=== PATIENT | female | born 1995 | race Caucasian/White ===

== ENCOUNTER 2019-05-15 06:00 | Inpatient (IN) | payer OTHER ==
--- NOTE | 2019-05-14 16:16 | P.HPOB ---
History of Present Illness H&P Date: 05/14/19 Chief Complaint: Induction of labor This is a 24 y.o. female, 2, para 0, with an estimated date of confinement of 05/19/2019, estimated gestational age of 39-3/7 weeks, who presents for induction of labor. She admits to good movement and has been experiencing irregular contractions. course has been uncomplicated. labs: Hepatitis B surface antigen-neg RPR-NR Rubella-immune Blood type- B neg. Antibody screen-neg. Hemoglobin-13.6 Random glucose-73 1 hr. GTT-119 Rhogam-given at 28 weeks Group B streptococcus-neg OB Hx: . 1 miscarriage. 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 Social Hx: . Works at a [employer]. Review of Systems Constitutional: Denies chills, Denies fever Eyes: denies blurred vision, denies pain Ears, nose, mouth and throat: Denies headache, Denies sore throat Cardiovascular: Denies chest pain, Denies shortness of breath Gastrointestinal: Reports abdominal pain (irregular contractions) Genitourinary: Reports pelvic pain, Reports Musculoskeletal: Reports low back pain Integumentary: Denies pruritus, Denies rash Neurological: Denies numbness, Denies weakness Psychiatric: Denies anxiety, Denies depression Past Medical History Past Medical History: Asthma History of Any Multi-Drug Resistant Organisms: None Reported Past Surgical History: Orthopedic Surgery Additional Past Surgical History / Comment(s): knee wrist Past Psychological History: No Psychological Hx Reported Smoking Status: Never smoker Past Alcohol Use History: None Reported Past Drug Use History: None Reported - Past Family History Father Family Medical History: Hypertension Medications and Allergies Home Medications Medication Instructions Recorded Confirmed Type Albuterol Inhaler [Ventolin Hfa 03/27/15 05/07/15 History Inhaler] Beclomethasone Dipropionate [Qvar 1 puff INHALATION BID 03/27/15 05/07/15 History 40 mcg/puff] Orphenadrine [Norflex] 100 mg PO Q12H PRN #12 tablet.er 05/07/15 Rx Allergies Allergy/AdvReac Type Severity Reaction Status Date / Time No Known Allergies Allergy Verified 05/07/15 17:27 Exam Osteopathic Statement: *. No significant issues noted on an osteopathic structural exam other than those noted in the History and Physical/Consult.
[2019-05-15] MEDS ORDERED: LIDOCAINE 0.5% (PF) 5 MG/ML (50 ML SDV) SQ PRN (06:36)
[2019-05-15] MEDS ORDERED: LIDOCAINE 1% (10MG/ML) FOR IV START INTRADERMA PRN (06:36)
[2019-05-15] MEDS ORDERED: METHYLERGONOVINE 0.2 MG/ML 1 ML AMP IM PRN (06:36)
[2019-05-15] MEDS ORDERED: OXYTOCIN 10 UNIT/ML 1 ML VIAL IM PRN (06:36)
[2019-05-15] MEDS ORDERED: TERBUTALINE 1 MG/ML VIAL SQ PRN (06:36)
[2019-05-15] MEDS ORDERED: OXYTOCIN 30 UNITS/500 ML NS 30 UNIT in SALINE 1 500ML.BAG IV SCH (06:36)
[2019-05-15] MEDS ORDERED: CARBOPROST TROMETHAMINE 250 MCG/ML 1 ML AMP IM PRN (06:36)
[2019-05-15] MEDS: LACTATED RINGERS 1,000 ML IV SCH ×3 (06:40→23:30)
[2019-05-15 06:47] LABS: Basophils % (A) 0 %; Eosinophils # (A) 0.2 k/uL (0-0.7); Eosinophils % (A) 1 %; HCT 40.7 % (34.0-46.0); HGB 13.8 gm/dL (11.4-16.0); Lymphocytes # (A) 1.6 k/uL (1.0-4.8); Lymphocytes % (A) 9 %; MCH 29.6 pg (25.0-35.0); Mean Platelet Volume 7.5; Monocytes % (A) 6 %; Neutrophils % (A) 83 %; Platelet Count 238 k/uL (150-450); RBC 4.67 m/uL (3.80-5.40); RDW 12.7 % (11.5-15.5)
[2019-05-15] MEDS ORDERED: BUTORPHANOL 1 MG/ML 1 ML VIAL IM PRN (12:15)
[2019-05-15] MEDS ORDERED: BUTORPHANOL 1 MG/ML 1 ML VIAL IV PRN (12:20)
[2019-05-15] MEDS ORDERED: CITRIC ACID-SODIUM CITRATE 15 ML CUP PO ONE (19:17)
[2019-05-15] MEDS ORDERED: LACTATED RINGERS 1,000 ML IV ONE (19:17)
[2019-05-15] MEDS ORDERED: KETOROLAC 30 MG/ML 1 ML VIAL ONE (19:24)
[2019-05-15] MEDS ORDERED: ONDANSETRON 4 MG/2 ML VIAL ONE (19:24)
[2019-05-15] MEDS ORDERED: OXYTOCIN 10 UNIT/ML 1 ML VIAL ONE (19:24)
[2019-05-15] MEDS ORDERED: NALBUPHINE 10 MG/ML (1 ML AMP) ONE (19:24)
[2019-05-15] MEDS ORDERED: MORPHINE SULFATE (PF) 0.3 MG/0.3 ML SYR ONE (19:24)
[2019-05-15] MEDS ORDERED: PHENYLEPHRINE-0.9% NACL SYG 1 MG/10 ML SYRINGE ONE (19:24)
[2019-05-15] MEDS ORDERED: ceFAZolin 1,000 MG VIAL ONE (19:24)
--- NOTE | 2019-05-15 20:21 | P.OP ---
Date of Procedure: 05/15/19 Preoperative Diagnosis: 1. Intrauterine at 39-3/7 weeks. 2. Failure to progress. Postoperative Diagnosis: Same Procedure(s) Performed: Primary low transverse section Anesthesia: spinal (Duramorph) Surgeon: Nishi Yu Check Airman #1: Olga Michel Estimated Blood Loss (ml): 500 Pathology: none sent Condition: stable Disposition: floor Indications for Procedure: This is a 24-year-old female 2 para 0 at 39-3/7 weeks who presented for induction of labor. She progressed to 9-1/2 cm to rim and began pushing with a very stretchy cervix. There was a significant amount of caput and her pushes were fairly ineffective. The patient requested section and did not want to push anymore. I have discussed the risks, benefits, and alternative therapies for the above- mentioned procedure and for both sedation/anesthesia as well as necessary blood products administration, if indicated, as they pertain to this patient. The patient has indicated her understanding and acceptance of the risks and procedures discussed. Operative Findings: A viable female is noted in the vertex presentation in a right occiput transverse lie with a significant amount of caput. scores were 8 at 1 minute and 9 at 5 minutes and infant weight was 8 lbs. 1 oz. Normal uterus tubes and ovaries are noted. Description of Procedure: The patient is taken to the operating room where she is placed in the dorsal supine position with leftward tilt after spinal Duramorph anesthesia is given. She is prepped and draped in the normal sterile fashion. Skin was tested and found to be adequately anesthetized. A Pfannenstiel skin incision was made with a scalpel. A second knife was used to carry the incision down to the underlying layer of fascia. The fascia was nicked in the midline with a scalpel and then extended laterally bilaterally with Espinoza scissors. The anterior lip of the fascia was grasped with 2 Michele clamps and then dissected off the underlying rectus muscle in the midline with Espinoza scissors. The inferior aspect of the fascial incision was grasped with 2 Michele clamps and dissected off the underlying rectus muscle and the midline with Espinoza scissors. Next the peritoneum layer was tented up with 2 hemostats and then entered sharply with the scalpel. The incision is extended superiorly and inferiorly with Metzenbaum scissors. Next a DeLee retractor is placed. The vesicouterine peritoneum is entered sharply with Metzenbaum scissors and extended laterally bilaterally with Metzenbaum scissors and then the bladder flap is pushed inferiorly. The lower uterine segment is incised in transverse fashion with the scalpel and then bluntly entered with a hemostat. Clear fluid is noted. The incision was then extended laterally bilaterally with 2 fingers. Next the infant's head is delivered through the incision. Nose and mouth are bulb suctioned. The remainder of the infant is easily delivered and placed on mother's abdomen. Cord is clamped and cut. Infant is taken to warmer by nursing staff. Uterine fundus is gently massaged and placenta is delivered manually. Uterus is exteriorized and cleared of all clots and debris. Uterine incision is closed with 0 Vicryl suture in a running locked fashion. A second layer of 0 Vicryl suture is used in a running fashion for hemostasis. Once adequate hemostasis as assured, the vesicouterine peritoneum is reapproximated with 2-0 Vicryl suture in a running fashion. Posterior cul-de-sac is suctioned of all clots and debris. Uterus is returned to the abdomen. Incision is noted to be hemostatic. Peritoneal layer is closed with 0 Vicryl suture in a running fashion. Muscle layer is reapproximated with 0 Vicryl suture in interrupted fashion. Fascia layer is then closed with 0 PDS suture with 2 sutures meeting in the midline and the knots buried in either side and in the midline. The subcutaneous tissue was then closed with 2-0 Vicryl suture. Skin layer was then closed with meera. All sponge and needle counts are correct. The patient is taken to recovery room in stable condition.
[2019-05-15] MEDS ORDERED: ONDANSETRON 4 MG/2 ML VIAL IVP PRN (21:22)
[2019-05-15] MEDS ORDERED: HYDROcodone/APAP 7.5-325MG 1 EACH TAB PO PRN (21:22)
[2019-05-15] MEDS ORDERED: HYDROcodone/APAP 5-325MG 1 EACH TAB PO PRN (21:22)
[2019-05-15] MEDS ORDERED: OXYTOCIN 20 UNITS/1000 ML NS 1,000 ML IV SCH (21:22)
[2019-05-15] MEDS ORDERED: ACETAMINOPHEN TAB 325 MG TAB PO PRN (21:22)
[2019-05-15] MEDS ORDERED: KETOROLAC 30 MG/ML 1 ML VIAL IVP PRN (21:22)
[2019-05-15] MEDS ORDERED: NALOXONE 0.4 MG/ML 1 ML VIAL IV PRN (21:22)
[2019-05-15] MEDS ORDERED: diphenhydrAMINE 25 MG CAP PO PRN (21:22)
[2019-05-15] MEDS ORDERED: METOCLOPRAMIDE 5 MG/ML 2 ML VIAL IVP PRN (21:22)
[2019-05-15] MEDS ORDERED: diphenhydrAMINE 50 MG CAP PO PRN (21:22)
[2019-05-15] MEDS ORDERED: ZOLPIDEM 5 MG TAB PO PRN (21:22)
[2019-05-15] MEDS ORDERED: LANOLIN CREAM 5 GM TUBE TOPICAL PRN (21:22)
[2019-05-15] MEDS ORDERED: diphenhydrAMINE 50 MG/ML 1 ML VIAL IVP PRN ×2 (21:22)
[2019-05-15] MEDS ORDERED: SIMETHICONE 80 MG CHEWABLE PO PRN (21:22)
[2019-05-15] MEDS: SENNOSIDES-DOCUSATE SODIUM 1 EACH TAB PO SCH (21:35)
[2019-05-16] MEDS ORDERED: Rhogam IMMUNE GLOBULIN 1,500 UNIT/1 ML IM ONE (00:36)
[2019-05-16] MEDS: LACTATED RINGERS 1,000 ML IV SCH ×2 (06:36→21:29)
[2019-05-16 07:51] LABS: Basophils % (A) 0 %; Eosinophils % (A) 0 %; HGB 11.7 gm/dL (11.4-16.0); Lymphocytes # (A) 1.1 k/uL (1.0-4.8); Lymphocytes % (A) 6 %; MCH 29.8 pg (25.0-35.0); MCHC 33.4 g/dL (31.0-37.0); MCV 89.3 fL (80.0-100.0); Mean Platelet Volume 7.4; Monocytes # (A) 1.2 k/uL (0-1.0); Monocytes % (A) 6 %; Neutrophils # (A) 16.4 k/uL (1.3-7.7); Neutrophils % (A) 87 %; Platelet Count 223 k/uL (150-450); RBC 3.92 m/uL (3.80-5.40); RDW 12.7 % (11.5-15.5); WBC 18.8 k/uL (3.8-10.6)
[2019-05-16] MEDS: SENNOSIDES-DOCUSATE SODIUM 1 EACH TAB PO SCH ×2 (08:33→21:32)
--- NOTE | 2019-05-16 11:38 | P.PNOBGPC ---
Subjective - Subjective Principal diagnosis: status post primary section postoperative day #1 Interval history: patient is doing okay. She is passing some flatus but no bowel movement yet. She is bottle feeding. She has not been able to urinate quite yet. Her pain is fairly well controlled at this time. Lochia is decreasing. Patient reports: Reports appetite normal, Reports pain well controlled, Reports ambulating normally : doing well, bottle feeding Objective - Vital Signs Latest vital signs: Vital Signs Temp Pulse Resp BP Pulse Ox 05/16/19 08:00 98.6 F 94 17 124/70 97 05/16/19 04:30 99.3 F 102 H 16 121/69 94 L 05/16/19 00:45 98.3 F 92 16 107/71 96 05/15/19 22:20 108 H 16 115/64 94 L 05/15/19 21:50 95 16 110/56 05/15/19 21:20 83 16 98/57 05/15/19 21:05 93 16 93/50 93 L 05/15/19 20:50 111 H 16 112/58 95 05/15/19 20:35 110 H 16 110/58 96 05/15/19 20:20 98.1 F 107 H 18 101/51 97 Intake and Output 05/15/19 05/16/19 05/16/19 22:59 06:59 14:59 Output Total 800 400 30 Balance -800 -400 -30 Output: Urine 300 400 30 Uretheral (Whipple) 200 Estimated Blood Loss 500 Other: Voiding Method Indwelling Catheter Indwelling Catheter # Voids 1 - Exam Extremities: Present: normal, edema (trace). Absent: tenderness Abdomen: Present: normal appearance, soft (faint bowel sounds 4), distention (slight) Incision: Present: normal, dry, intact. Absent: erythematous Uterus: Present: normal, firm. Absent: tenderness - Labs Labs: Abnormal Lab Results - Last 24 Hours (Table) 05/16/19 Range/Units 06:29 WBC 18.8 H (3.8-10.6) k/uL Neutrophils # 16.4 H (1.3-7.7) k/uL Monocytes # 1.2 H (0-1.0) k/uL Assessment and Plan Assessment: status post primary section postoperative day #1. Plan: encouraged ambulation. May advance diet as tolerated after flatus. Will straight cath if unable to urinate.
--- NOTE | 2019-05-16 13:08 | P.PN ---
Progress Note - Text 05/15 700am 24-year-old female status post with a spinal anesthetic and spinal Duramorph. Patient seen and evaluated for pain control, she has a VAS of 4 with no complains of nausea vomiting or pruritus doing very well.
[2019-05-16] MEDS: IBUPROFEN 600 MG TAB PO PRN (21:33)
[2019-05-17] MEDS: LACTATED RINGERS 1,000 ML IV SCH (01:15)
--- NOTE | 2019-05-17 08:40 | P.DS ---
Providers Date of admission: 05/15/19 06:26 Expected date of discharge: 05/17/19 Attending physician: Nishi Yu Primary care physician: Stated None Hospital Course: This is a 24-year-old female 2 para 0 at 39-3/7 weeks who presented for induction of labor. She underwent oxytocin induction of labor and reached 9-1/2 cm. She was unable to bring the baby down and therefore underwent a primary low transverse section on 05/15/2019. She delivered a viable female infant with scores of 8 at 1 minute and 9 at 5 minutes and infant weight of 8 lbs. 1 oz. Her course has been essentially uncomplicated. Lochia has been decreasing. Her pain is fairly well controlled. She is working on breast-feeding. She is passing flatus but no bowel movement yet. She is urinating without difficulty. Vital signs are stable. Abdomen is soft with fundus firm and nontender. Abdomen is soft with positive bowel sounds 4. Incision is clean dry and intact with meera in place. Extremities show negative Homans. Impression is status post primary section postoperative day #2. Plan is to discharge home today. [place]ane will be removed and Steri-Strips placed prior to discharge. She will be given a prescription for ibuprofen and a breast pump. She has not required any narcotic pain medication since delivery. Routine postoperative and instructions are given. She is advised to follow up in the office in 1 week for postoperative check and in 6 weeks for check. She is advised to call the office if she has any further questions or concerns prior to her next appointment time. Procedures: Oxytocin induction of labor Primary low transverse section were delivery of a viable female infant on 05/15/2019 Patient Condition at Discharge: Stable Plan - Discharge Summary New Discharge Prescriptions: New Ibuprofen [Motrin] 600 mg PO Q6HR PRN #60 tab PRN Reason: Mild Pain Or Fever >= 100.5 Continue Albuterol Inhaler [Ventolin Hfa Inhaler] 78/Iron/Folate 1/Dha [Prenate Dha Softgel] 1 tab PO ONCE Discharge Medication List Albuterol Inhaler [Ventolin Hfa Inhaler] 03/27/15 [History] 78/Iron/Folate 1/Dha [Prenate Dha Softgel] 1 tab PO ONCE 05/15/19 [History] Ibuprofen [Motrin] 600 mg PO Q6HR PRN #60 tab 05/17/19 [Rx] Follow up Appointment(s)/Referral(s): Nishi Yu DO [Doctor of Osteopathic Medicine] - 6 Weeks Activity/Diet/Wound Care/Special Instructions: Instructions 1. Do not begin any exercise program for 3 weeks. 2. Do not resume sexual relations for 3 weeks or longer if uncomfortable. 3. You may take tub baths or showers at any time. 4. You may use tampons if desired after 3 weeks. 5. Keep the area of episiotomy (stitches) clean and dry. 6. If you are not nursing, wear a good fitting, supportive bra during the day and limit fluid intake for at least 1 week to prevent breast engorgement. 7. Call the office, [phone], within the next week to make appointment for your 6 week checkup if it has not already been made. 8. Report any of the following occurrences to the doctor promptly: a. Heavy, excessive bleeding b. Chills, fever c. Burning or frequency of urination d. Pain or redness and breasts if nursing e. Increasing pain or swelling in episiotomy (stitches). In addition to the above instructions, the following additional should be followed: 1. No heavy lifting or straining (exercising) until after 6 week checkup. 2. Keep abdominal incision clean and dry: You may wear a dressing if more comfortable. 3. Make office appointment for 10 days after going home or as instructed by her doctor. Discharge Disposition: HOME SELF-CARE
[2019-05-17] MEDS: SENNOSIDES-DOCUSATE SODIUM 1 EACH TAB PO SCH (10:13)
[2019-05-17] MEDS: IBUPROFEN 600 MG TAB PO PRN (10:20)
[2019-05-17 15:19] VITALS: BP 128/71; PULSE 86; RESP 16; TEMP 98.4
== END 2019-05-17 18:15 | disposition home or self-care (01) | DRG 788 ==
LOC: 4FBP 06:26
PROVIDERS: ADMIT Obstetrics & Gynecology; ATTEND Obstetrics & Gynecology
PROC: 3E033VJ Introduction of Other Hormone into Peripheral Vein, Percutaneous Approach (ICD-10-PCS; principal; 2019-05-15 19:47)
PROC: 10907ZC Drainage of Amniotic Fluid, Therapeutic from Products of Conception, Via Natural or Artificial Opening (ICD-10-PCS; principal; 2019-05-15 19:47)
PROC: 10D00Z1 Extraction of Products of Conception, Low, Open Approach (ICD-10-PCS; principal; 2019-05-15 19:47)
PROC: 3E0234Z Introduction of Serum, Toxoid and Vaccine into Muscle, Percutaneous Approach (ICD-10-PCS; 2019-05-16)
DX: O32.2XX0 Maternal care for transverse and oblique lie, not applicable or unspecified (principal); O26.893 Other specified pregnancy related conditions, third trimester; Z67.21 Type B blood, Rh negative; O62.2 Other uterine inertia; J45.909 Unspecified asthma, uncomplicated; O99.52 Diseases of the respiratory system complicating childbirth; Z79.899 Other long term (current) drug therapy; Z3A.39 39 weeks gestation of pregnancy; Z37.0 Single live birth; Z82.49 Family history of ischemic heart disease and other diseases of the circulatory system
CPT/HCPCS: 85025; 85461; 86850; 86870; 86880; 86900; 86901

== ENCOUNTER → 2022-01-27 | Outpatient (CLI) | payer OTHER ==
--- NOTE | 2022-01-27 10:21 | US ---
EXAMINATION TYPE: US pelvic complete DATE OF EXAM: 01/27/2022 COMPARISON: Ultrasound 12/22/2012. CLINICAL HISTORY: Z87.59 PERSONAL HISTORY OF COMP OF PREG, CHLDBRTH. TECHNIQUE: Transabdominal (TA). Date of LMP: 10-25-21 Recent miscarriage EXAM MEASUREMENTS: Uterus: 8.9 x 4.0 x 4.8 cm Endometrial Stripe: 0.5 cm Right Ovary: 3.3 x 1.8 x 1.6 cm Left Ovary: 3.3 x 2.3 x 2.4 cm 1. Uterus: Anteverted wnl 2. Endometrium: wnl. No gestational or yolk sac identified. 3. Right Ovary: wnl 4. Left Ovary: wnl 5. Bilateral Adnexa: wnl 6. Posterior cul-de-sac: wnl IMPRESSION: No acute pelvic process. Normal thickness endometrium.
== END | disposition home or self-care (01) ==
LOC: RADUSWWP 09:48
PROVIDERS: ATTEND Obstetrics & Gynecology
DX: Z87.59 Personal history of other complications of pregnancy, childbirth and the puerperium (principal)
CPT/HCPCS: 76856

== ENCOUNTER → 2022-04-06 | Outpatient (CLI) | payer OTHER ==
--- NOTE | 2022-04-06 15:09 | US ---
EXAMINATION TYPE: Transabdominal DATE OF EXAM: 04/06/2022 2:49 PM COMPARISON: NONE CLINICAL HISTORY: Z36.89 CONFIRM GESTATIONAL AGE AND VIABILITY. Positive beta hCG test. EXAM PERFORMED: Transabdominal (TA) EXAM MEASUREMENTS: GESTATIONAL AGE / DATING Dates by LMP: (7 weeks/4 days) EDC: 11/19/2022 Dates by First Scan: No previous this is first scan Dates by Current Scan for: (7 weeks/5 days) EDC: 11/18/2022 MATERNAL ANATOMY Uterus: wnl Right Ovary: wnl Left Ovary: Small possible corpus luteum Post CDS / Adnexa: wnl Presence of free fluid: No Presence of corpus luteal cyst: Left ovary 1.1 x 0.77 x 1.5cm Presence of subchorionic bleed: No GESTATION / SURVEY CRL: 1.39cm (7 weeks/5 days) MSD: 2.49cm (7 weeks/5 days) Yolk Sac (normal less than 6mm): 2.9mm Heart Rate: 149 bpm Rhythm: Normal IUP: Viable IUP Date of LMP: 02/12/2022 Single live intrauterine gestation as gestational sac, yolk sac, pole are seen. No free fluid i n pelvis. Both ovaries are seen. There is 1.1 cm thin-walled cyst in the periphery of the left ovary, possible corpus luteal cyst. No suspicious extraovarian adnexal mass. IMPRESSION: Single live intrauterine gestation is confirmed. Mean crown-rump length 1.4 cm correspond ing to 7 week 5 day old fetus.
== END | disposition home or self-care (01) ==
LOC: RADUSWWP 14:23
PROVIDERS: ATTEND Obstetrics & Gynecology
DX: Z36.89 Encounter for other specified antenatal screening (principal); Z3A.01 Less than 8 weeks gestation of pregnancy
CPT/HCPCS: 76801

== ENCOUNTER 2022-11-02 09:53 | Inpatient (IN) | payer OTHER ==
[2022-10-28 15:56] VITALS: BMI 35.5
--- NOTE | 2022-11-01 15:55 | P.HPOB ---
History of Present Illness H&P Date: 11/01/22 Chief Complaint: Umbilical vein varix This is a 27 y.o. female, 4, para 1, with an estimated date of confinement of 11/19/2022, estimated gestational age of 37-4/7 weeks, who presents for scheduled repeat section due to umbilical vein varix. She has been seen by M who recommends delivery by 38 weeks due to this complication. is also complicated by gestational diabetes, diet-controlled. She has been doing weekly BPPs and twice weekly NSTs. labs: Hemoglobin-14.7 Blood type-B neg Antibody screen-neg Rubella-immune Toxoplasma-neg RPR-NR HIV-NR Hepatits C-neg Random glucose-74 Hepatitis B surface antigen-neg 1 hr. GTT-187 3 hr. GTT- 2 values high GBS-neg OB Hx: . History of due to failed induction, 8#1oz girl, 1 miscarriage, 1 VTP. 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 Works at [employer]. Review of Systems Constitutional: Denies chills, Denies fever Eyes: denies blurred vision, denies pain Ears, nose, mouth and throat: Denies headache, Denies sore throat Cardiovascular: Denies chest pain, Denies shortness of breath Gastrointestinal: Reports abdominal pain (irregular contractions) Genitourinary: Reports pelvic pain, Reports Musculoskeletal: Reports low back pain Integumentary: Denies pruritus, Denies rash Neurological: Denies numbness, Denies weakness Psychiatric: Denies anxiety, Denies depression Past Medical History Past Medical History: Asthma Additional Past Medical History / Comment(s): No medication required for Asthma in about 6 yrs. Current Gestational Diabetes - Diet Controlled. History of Any Multi-Drug Resistant Organisms: None Reported Past Surgical History: Section, Orthopedic Surgery Additional Past Surgical History / Comment(s): Section X1, left knee surgery X2, wrist surgery, wisdom teeth extracted. Past Anesthesia/Blood Transfusion Reactions: No Reported Reaction Past Psychological History: No Psychological Hx Reported Smoking Status: Former smoker Past Alcohol Use History: None Reported Additional Past Alcohol Use History / Comment(s): Quit smoking 4 yrs ago. Past Drug Use History: None Reported - Past Family History Father Family Medical History: Hypertension Medications and Allergies Home Medications Medication Instructions Recorded Confirmed Type Albuterol Inhaler [Ventolin Hfa 1 - 2 puff INHALATION DIRECTED 03/27/15 10/28/22 History Inhaler] PRN MDD Last used about 6 yrs ago 78/Iron/Folate 1/Dha 1 tab PO DAILY 05/15/19 10/28/22 History [Prenate Dha Softgel] Allergies Allergy/AdvReac Type Severity Reaction Status Date / Time No Known Allergies Allergy Verified 10/28/22 15:45 Exam Osteopathic Statement: *. No significant issues noted on an osteopathic s tructural exam other than those noted in the History and Physical/Consult. HEENT: within normal limits Heart: regular rate and rhythm Lungs: clear to auscultation bilatrally Abdomen: , non-tender Cervix: 1 cm/60%/-2 heart tones: 140's by doppler Extremities: neg. Fabrice's Assessment and Plan (1) 37 weeks gestation of Status: Acute Code(s): Z3A.37 - 37 WEEKS GESTATION OF SNOMED Code(s): 03247044 (2) Varices of umbilical vein Status: Acute Code(s): [id number] - SNOMED Code(s): 333994285 (3) Gestational diabetes mellitus, diet-controlled Status: Acute Code(s): O24.410 - GESTATIONAL DIABETES MELLITUS IN , DIET CONTROLLED SNOMED Code(s): 67530922 Plan: Admission for repeat section due to umbilical vein varix. I have discussed the risks, benefits, and alternative therapies for the above- mentioned procedure and for both sedation/anesthesia as well as necessary blood products administration, if indicated, as they pertain to this patient. The patient has indicated her understanding and acceptance of the risks and procedures discussed.
[2022-11-02] MEDS ORDERED: TRANEXAMIC 1,000 MG/100ML-NACL 1,000 MG in EMPTY BAG 1 BAG IV PRN (10:27)
[2022-11-02] MEDS ORDERED: OXYTOCIN 30 UNITS/500 ML NS 30 UNIT in SALINE 1 500ML.BAG IV SCH (10:27)
[2022-11-02] MEDS ORDERED: LIDOCAINE 1% (10MG/ML) FOR IV START INTRADERMA PRN (10:27)
[2022-11-02] MEDS ORDERED: METHYLERGONOVINE 0.2 MG/ML 1 ML AMP IM PRN (10:27)
[2022-11-02] MEDS ORDERED: OXYTOCIN 10 UNIT/ML 1 ML VIAL IM PRN (10:27)
[2022-11-02] MEDS ORDERED: miSOPROStoL 200 MCG TAB PO PRN (10:27)
[2022-11-02] MEDS ORDERED: CARBOPROST TROMETHAMINE 250 MCG/ML 1 ML AMP IM PRN (10:27)
[2022-11-02] MEDS ORDERED: CITRIC ACID-SODIUM CITRATE 15 ML CUP PO ONE (10:27)
[2022-11-02 10:36] LABS: Glucose,Whole Blood 90 mg/dL (70-110)
[2022-11-02 10:46] LABS: Basophils % (A) 0 %; Eosinophils # (A) 0.1 k/uL (0-0.7); Eosinophils % (A) 1 %; HCT 37.6 % (34.0-46.0); HGB 13.5 gm/dL (11.4-16.0); Lymphocytes # (A) 1.1 k/uL (1.0-4.8); Lymphocytes % (A) 12 %; MCV 88.9 fL (80.0-100.0); Mean Platelet Volume 7.6; Monocytes # (A) 0.5 k/uL (0-1.0); Monocytes % (A) 6 %; Neutrophils % (A) 80 %; Platelet Count 160 k/uL (150-450); RBC 4.23 m/uL (3.80-5.40); RDW 13.3 % (11.5-15.5); WBC 8.8 k/uL (3.8-10.6)
[2022-11-02] MEDS: LACTATED RINGERS 1,000 ML IV SCH ×2 (11:51→16:55)
[2022-11-02] MEDS: LACTATED RINGERS 1,000 ML IV ONE ×3 (12:37→16:20)
--- NOTE | 2022-11-02 13:42 | P.OP ---
Date of Procedure: 11/02/22 Preoperative Diagnosis: 1. Intrauterine at 37-4/7 weeks. 2. Umbilical vein varix. 3. History of previous section. Postoperative Diagnosis: Same Procedure(s) Performed: Repeat low transverse section Anesthesia: spinal (Duramorph) Surgeon: Nishi Yu Md Do Resident Urgent Care #1: Tobias Balderrama Estimated Blood Loss (ml): 300 Pathology: other (Placenta) Condition: stable Disposition: floor Indications for Procedure: This is a 27-year-old female 4 para 1 at 37-4/7 weeks who presents for scheduled repeat low transverse section due to umbilical vein varix and previous section. I have discussed the risks, benefits, and alternative therapies for the above- mentioned procedure and for both sedation/anesthesia as well as necessary blood products administration, if indicated, as they pertain to this patient. The patient has indicated her understanding and acceptance of the risks and procedures discussed. Operative Findings: A viable female infant is noted in the vertex presentation with scores of 8 at 1 minute and 9 at 5 minutes and nuchal cord 3. Infant weight was 7 lbs. 13 oz. Normal uterus tubes and ovaries are noted. Description of Procedure: The patient is taken to the operating room where she is placed in the dorsal supine position with leftward tilt after spinal Duramorph anesthesia is given. She is prepped and draped in the normal sterile fashion. Skin was tested and found to be adequately anesthetized. A Pfannenstiel skin incision was made with a scalpel through the previous laparotomy scar. A second knife was used to ca rry the incision down to the underlying layer of fascia. The fascia was nicked in the midline with a scalpel and then extended laterally bilaterally with Espinoza scissors. The anterior lip of the fascia was grasped with 2 Michele clamps and then dissected off the underlying rectus muscle in the midline with Espinoza scissors. The inferior aspect of the fascial incision was grasped with 2 Michele clamps and dissected off the underlying rectus muscle and the midline with Espinoza scissors. Next the peritoneum layer was tented up with 2 hemostats and then entered sharply with the scalpel. The incision is extended superiorly and inferiorly with Metzenbaum scissors. Next a DeLee retractor is placed. The vesicouterine peritoneum is entered sharply with Metzenbaum scissors and extended laterally bilaterally with Metzenbaum scissors and then the bladder flap is pushed inferiorly. The lower uterine segment is incised in transverse fashion with the scalpel and then bluntly entered with a hemostat. Clear fluid is noted. The incision was then extended laterally bilaterally with 2 fingers. Next the 's head is delivered through the incision. Nose and mouth are bulb suctioned. Nuchal cord 3 is reduced around the infant's head. The remainder of the infant is easily delivered and placed on mother's abdomen. Cord is clamped and cut. is taken to warmer by nursing staff. Uterine fundus is gently massaged and placenta is delivered manually. Uterus is exteriorized and cleared of all clots and debris. Uterine incision is closed with 0 Vicryl suture in a running locked fashion. A second layer of 0 Vicryl suture is used in a running fashion for hemostasis. Once adequate hemostasis as assured, the vesicouterine peritoneum is reapproximated with 2-0 Vicryl suture in a running fashion. Posterior cul-de-sac is suctioned of all clots and debris. Uterus is returned to the abdomen. Incision is noted to be hemostatic. Peritoneal layer is closed with 0 Vicryl suture in a running fashion. Muscle layer is reapproximated with 0 Vicryl suture in interrupted fashion. Fascia layer is then closed with 0 PDS suture with 2 sutures meeting in the midline and the knots buried in either side and in the midline. The subcutaneous tissue was then closed with 2-0 Vicryl suture. Skin layer was then closed with meera. All sponge and needle counts are correct. The patient is taken to recovery room in stable condition.
[2022-11-02] MEDS ORDERED: HYDROmorphone 1 MG/ML 1 ML SYRINGE IVP PRN (14:07)
[2022-11-02] MEDS ORDERED: ONDANSETRON 4 MG/2 ML VIAL IVP PRN ×2 (14:07→14:11)
[2022-11-02] MEDS ORDERED: METOCLOPRAMIDE 5 MG/ML 2 ML VIAL IVP PRN (14:07)
[2022-11-02] MEDS ORDERED: NALOXONE 0.4 MG/ML 1 ML VIAL IV PRN ×2 (14:07→14:11)
[2022-11-02] MEDS ORDERED: diphenhydrAMINE 25 MG CAP PO PRN (14:07)
[2022-11-02] MEDS ORDERED: diphenhydrAMINE 50 MG/ML 1 ML VIAL IVP PRN ×2 (14:07)
[2022-11-02] MEDS ORDERED: diphenhydrAMINE 50 MG CAP PO PRN (14:07)
[2022-11-02] MEDS ORDERED: LANOLIN CREAM 5 GM TUBE TOPICAL PRN (14:07)
[2022-11-02] MEDS ORDERED: ZOLPIDEM 5 MG TAB PO PRN (14:07)
[2022-11-02] MEDS ORDERED: SIMETHICONE 80 MG CHEWABLE PO PRN (14:07)
[2022-11-02] MEDS ORDERED: HYDROmorphone 0.5 MG/0.5 ML SYRINGE IVP PRN ×2 (14:07→14:11)
[2022-11-02] MEDS ORDERED: NALBUPHINE 10 MG/ML (10 ML MDV) IV PRN (14:11)
[2022-11-02] MEDS: ACETAMINOPHEN TAB 500 MG TAB PO SCH (16:57)
[2022-11-02] MEDS: ACETAMINOPHEN IV (For NPO) 1,000 MG in EMPTY BAG 1 BAG IVPB SCH (17:12)
[2022-11-02] MEDS ORDERED: Rhogam IMMUNE GLOBULIN 1,500 UNIT/1 ML IM ONE (17:42)
[2022-11-02] MEDS: SENNOSIDES-DOCUSATE SODIUM 1 EACH TAB PO SCH (20:30)
[2022-11-02] MEDS: KETOROLAC 15 MG/ML 1 ML VIAL IVP SCH (20:35)
[2022-11-03] MEDS: ACETAMINOPHEN IV (For NPO) 1,000 MG in EMPTY BAG 1 BAG IVPB SCH (00:18)
[2022-11-03] MEDS: IBUPROFEN 600 MG TAB PO SCH ×5 (00:35→21:24)
[2022-11-03] MEDS: KETOROLAC 15 MG/ML 1 ML VIAL IVP SCH ×4 (02:41→21:24)
[2022-11-03 05:54] LABS: Basophils % (A) 0 %; Eosinophils # (A) 0.1 k/uL (0-0.7); Eosinophils % (A) 1 %; HCT 36.2 % (34.0-46.0); HGB 12.4 gm/dL (11.4-16.0); Lymphocytes # (A) 1.3 k/uL (1.0-4.8); Lymphocytes % (A) 10 %; MCH 31.1 pg (25.0-35.0); MCHC 34.3 g/dL (31.0-37.0); MCV 90.8 fL (80.0-100.0); Mean Platelet Volume 8.1; Monocytes # (A) 0.7 k/uL (0-1.0); Monocytes % (A) 6 %; Neutrophils # (A) 9.8 k/uL (1.3-7.7); Neutrophils % (A) 82 %; Platelet Count 154 k/uL (150-450); RBC 3.99 m/uL (3.80-5.40); RDW 13.6 % (11.5-15.5)
[2022-11-03] MEDS: ACETAMINOPHEN TAB 500 MG TAB PO SCH ×4 (05:57→21:05)
--- NOTE | 2022-11-03 09:04 | P.PNOBGPC ---
Subjective - Subjective Principal diagnosis: Status post repeat section postoperative day #1 Interval history: Patient is doing well. She is ambulating. She is passing flatus but no bowel movement yet. Her catheter has been removed but she has been unable to urinate yet. She has been straight cathed 1 time. She is breast-feeding. Lochia is minimal. Patient reports: Reports appetite normal, Reports pain well controlled, Reports ambulating normally, Denies voiding normally [place]: doing well, nursing well Objective - Vital Signs Latest vital signs: Vital Signs Temp Pulse Resp BP Pulse Ox 11/03/22 05:00 17 11/03/22 03:42 60 17 91/47 11/03/22 03:00 17 97 11/03/22 01:00 16 11/03/22 00:00 97.5 F L 69 17 96/63 97 11/02/22 23:00 17 97 11/02/22 21:00 17 11/02/22 20:00 97.5 F L 56 L 17 97/63 97 11/02/22 19:12 97 11/02/22 19:00 17 11/02/22 17:12 16 11/02/22 16:00 62 16 87/54 97 11/02/22 15:40 97.8 F 57 L 16 93/51 97 11/02/22 15:12 15 97 11/02/22 15:10 53 L 16 85/52 97 11/02/22 14:40 85 16 97/53 97 11/02/22 14:25 60 16 97/57 96 11/02/22 14:12 16 97 11/02/22 14:10 68 16 98/51 97 11/02/22 13:55 74 15 107/57 97 11/02/22 13:40 96.7 F L 66 15 107/58 97 11/02/22 10:27 98 F 77 16 115/63 97 Intake and Output 11/02/22 11/03/22 11/03/22 22:59 06:59 14:59 Output Total 1122 600 Balance -1122 -600 Output: Urine 950 600 Straight 600 Uretheral (Whipple) 400 Output, Quantitative 172 Blood Loss Other: # Voids 0 - Exam Extremities: Present: normal. Absent: tenderness, edema Abdomen: Present: normal appearance, soft. Absent: distention, tenderness Incision: Present: normal, dry, intact. Absent: erythematous Uterus: Present: normal, firm. Absent: tenderness - Labs Labs: Abnormal Lab Results - Last 24 Hours (Table) 11/03/22 Range/Units 05:04 WBC 12.0 H (3.8-10.6) k/uL Neutrophils # 9.8 H (1.3-7.7) k/uL Assessment and Plan Assessment: Status post repeat section postoperative day #1 (1) 37 weeks gestation of Current Visit: No Status: Acute Code(s): Z3A.37 - 37 WEEKS GESTATION OF SNOMED Code(s): 26721845 (2) Varices of umbilical vein Current Visit: No Status: Acute Code(s): ZLR5661 - SNOMED Code(s): 306832776 (3) Gestational diabetes mellitus, diet-controlled Current Visit: No Status: Acute Code(s): O24.410 - GESTATIONAL DIABETES MELLITUS IN , DIET CONTROLLED SNOMED Code(s): 05392804 Plan: Continue with postoperative and care today. Will work on urinating. Possible discharge home tomorrow.
[2022-11-03] MEDS: SENNOSIDES-DOCUSATE SODIUM 1 EACH TAB PO SCH ×2 (09:49→21:25)
[2022-11-03] MEDS ORDERED: ONDANSETRON 4 MG/2 ML VIAL IVP PRN (14:14)
[2022-11-03] MEDS: LACTATED RINGERS 1,000 ML IV SCH ×2 (15:51→21:23)
[2022-11-04] MEDS: ACETAMINOPHEN TAB 500 MG TAB PO SCH ×3 (02:42→12:24)
[2022-11-04] MEDS: KETOROLAC 15 MG/ML 1 ML VIAL IVP SCH ×2 (02:43→10:00)
[2022-11-04] MEDS: LACTATED RINGERS 1,000 ML IV SCH ×2 (02:43→12:23)
[2022-11-04] MEDS: IBUPROFEN 600 MG TAB PO SCH ×3 (02:43→12:37)
--- NOTE | 2022-11-04 05:53 | P.DS ---
Providers Date of admission: 11/02/22 09:53 Expected date of discharge: 11/04/22 Attending physician: Nishi Yu Primary care physician: Stated None - Discharge Diagnosis(es) (1) 37 weeks gestation of Current Visit: No Status: Acute (2) Varices of umbilical vein Current Visit: No Status: Acute (3) Gestational diabetes mellitus, diet-controlled Current Visit: No Status: Acute Hospital Course: This is a 27-year-old female 4 para 1 at 37-4/7 weeks who presented for repeat section due to umbilical vein varix and gestational diabetes. She underwent repeat low transverse section on 11/02/2022 and delivered a viable female with scores of 8 at 1 minute and 9 at 5 minutes and weight of 7 lbs. 13 oz. Her postoperative and course have been uncomplicated. Lochia is decreasing. Her pain is fairly well controlled at this time. She is breast-feeding. She is passing flatus but no bowel movement yet. Vital signs are stable. Abdomen is soft with positive bowel sounds 4. Incision is clean dry and intact with meera in place. Extremities show negative Homans. Impression is status post repeat low transverse section postoperative day #2. Plan is to discharge home today. Routine postoperative and instructions are given. She will be given a perception for ibuprofen and she is also instructed to continue her Tylenol as needed. She has a breast pump at home. She will have meera removed and Steri-Strips placed prior to discharge. She will follow up in the office in approximately 1-2 weeks for a postoperative check. Procedures: Repeat low transverse section on 11/02/2022 Patient Condition at Discharge: Stable Plan - Discharge Summary Discharge Rx Participant: No New Discharge Prescriptions: New Ibuprofen [Motrin] 600 mg PO Q6H #60 tab Continue 78/Iron/Folate 1/Dha [Prenate Dha Softgel] 1 tab PO DAILY No Action Albuterol Inhaler [Ventolin Hfa Inhaler] 1 - 2 puff INHALATION DIRECTED PRN MDD Last used about 6 yrs ago PRN Reason: Asthma Discharge Medication List Albuterol Inhaler [Ventolin Hfa Inhaler] 1 - 2 puff INHALATION DIRECTED PRN MDD Last used about 6 yrs ago 03/27/15 [History] 78/Iron/Folate 1/Dha [Prenate Dha Softgel] 1 tab PO DAILY 05/15/19 [History] Ibuprofen [Motrin] 600 mg PO Q6H #60 tab 11/04/22 [Rx] Follow up Appointment(s)/Referral(s): Nishi Yu DO [Doctor of Osteopathic Medicine] - 12/14/22 4:00 pm (Post Op Appointment 11-13-2022 at 2:15) Activity/Diet/Wound Care/Special Instructions: Instructions 1. Do not begin any exercise program for 3 weeks. 2. Do not resume sexual relations for 3 weeks or longer if uncomfortable. 3. You may take tub baths or showers at any time. 4. You may use tampons if desired after 3 weeks. 5. Keep the area of episiotomy (stitches) clean and dry. 6. If you are not nursing, wear a good fitting, supportive bra during the day and limit fluid intake for at least 1 week to prevent breast engorgement. 7. Call the office, [phone], within the next week to make appointment for your 6 week checkup if it has not already been made. 8. Report any of the following occurrences to the doctor promptly: a. Heavy, excessive bleeding b. Chills, fever c. Burning or frequency of urination d. Pain or redness and breasts if nursing e. Increasing pain or swelling in episiotomy (stitches). In addition to the above instructions, the following additional should be followed: 1. No heavy lifting or straining (exercising) until after 6 week checkup. 2. Keep abdominal incision clean and dry: You may wear a dressing if more comfortable. 3. Make office appointment for 10 days after going home or as instructed by her doctor. Discharge Disposition: HOME SELF-CARE
[2022-11-04] MEDS: SENNOSIDES-DOCUSATE SODIUM 1 EACH TAB PO SCH (08:37)
[2022-11-04 09:56] VITALS: BP 104/68; PULSE 62; RESP 18; TEMP 98.8
== END 2022-11-04 12:45 | disposition home or self-care (01) | DRG 540 ==
LOC: 4FBP 09:53
PROVIDERS: ADMIT Obstetrics & Gynecology; ATTEND Obstetrics & Gynecology
PROC: 3E0234Z Introduction of Serum, Toxoid and Vaccine into Muscle, Percutaneous Approach (ICD-10-PCS; 2022-11-02)
PROC: 10D00Z1 Extraction of Products of Conception, Low, Open Approach (ICD-10-PCS; principal; 2022-11-02 12:00)
DX: O69.5XX0 Labor and delivery complicated by vascular lesion of cord, not applicable or unspecified (principal); O24.420 Gestational diabetes mellitus in childbirth, diet controlled; J45.909 Unspecified asthma, uncomplicated; O34.211 Maternal care for low transverse scar from previous cesarean delivery; O69.81X0 Labor and delivery complicated by cord around neck, without compression, not applicable or unspecified; O99.52 Diseases of the respiratory system complicating childbirth; O26.893 Other specified pregnancy related conditions, third trimester; Z67.91 Unspecified blood type, Rh negative; Z28.310 Unvaccinated for COVID-19; Z3A.37 37 weeks gestation of pregnancy; Z37.0 Single live birth; Z79.899 Other long term (current) drug therapy; Z87.891 Personal history of nicotine dependence
CPT/HCPCS: 83036; 85025; 85461; 86850; 86870; 86880; 86900; 86901; 88307